=== PATIENT | male | born 1955 | race Caucasian/White ===

== ENCOUNTER 2021-02-21 12:00 | Inpatient (IN) ==
--- NOTE | 2021-02-17 10:11 | Anesthesiology Consultation ---
Date of Service February 17, 2021 Assessment & Plan (1) Encounter for pre-operative examination: Chart Review Chart Review: Acceptable Risk for Surgery (pending anesthesia evaluation DOS ) and Patient NOT seen in Pre Admission Testing -Per patient on 02/17/21- he has stopped his Enestro due to feet numbness- pt instructed to follow up with head of ethics and compliance. - Check BSG AM DOS Per nursing assessment 02/08/21, pt resides in [facility]. Does not wear mask in public but does social distance and washes hands. No known Covid positive contacts or Covid related symptoms. No known Covid infection in the past 90 days. Covid test 02/14/2021 = negative. Did call patient via telephone on 02/17/21 and instruct that until his surgery he should be wearing a mask in public. Will leave to anesthesiologist discretion AM of surgery if additional PPE/surgery time/repeat rapid Covid test needed DOS. Cardiology office visit: 10/11/20= "doing well from a cardiac standpoint. He is s/p post AVR and CABG x 1 in 07/2018.. The patient is stable and at optimal cardiac status presently to proceed with the planned surgery. PCP office visit note 10/26/20= "6.0% Revised Cardiac Risk Index.. pt aware of low risk [sic] of surgery.. optimal for surgery per cardiology." History Surgery Operation Date: 02/21/21 08:40 Proposed Procedures p Left Total Hip Arthroplasty - Tomas Sloan DO Height/Weight Height: 6 ft 2 in Weight: 136.078 kg Allergies Allergy/AdvReac Type Severity Reaction Status Date / Time No Known Allergies Allergy Verified 02/08/21 07:59 Medications Home Medications Medication Instructions Recorded Confirmed Last Taken allopurinol 100 mg PO BID 10/07/20 02/08/21 Unknown atorvastatin 10 mg PO QAM 10/07/20 02/08/21 Unknown carvedilol 6.25 mg PO BID 10/07/20 02/08/21 Unknown metformin 500 mg PO QAM 10/07/20 02/08/21 Unknown oxycodone 5 mg PO BID PRN 10/07/20 02/08/21 Unknown sacubitril-valsartan [Entresto] 1 tab PO BID 10/07/20 02/08/21 Unknown spironolactone 25 mg PO QAM 10/07/20 02/08/21 Unknown acetaminophen [Tylenol Extra 1,000 mg PO Q6H PRN 02/08/21 02/08/21 Unknown Strength] cholecalciferol (vitamin D3) 125 mcg PO QAM 02/08/21 02/08/21 Unknown [Vitamin D3] gabapentin 300 mg PO BID 02/08/21 02/08/21 Unknown lactobacillus combination no.4 3,000 mmu cells PO QAM 02/08/21 02/08/21 Unknown [Probiotic] multivitamin 1 tab PO QAM 02/08/21 02/08/21 Unknown omega-3 fatty acids [Fish Oil 1,000 mg PO QAM 02/08/21 02/08/21 Unknown Concentrate] turmeric root extract 500 mg PO QAM 02/08/21 02/08/21 Unknown Past Medical History Medical History (Updated 02/17/21 @ 10:53 by Bety Clement PA-C) Congestive heart failure Due to left ventricular dysfunction Life vest in 2018 secondary to EF 25% (only wore life vest x 2 months) MRI Cardiac 10/2018- EF 44% Coronary atherosclerosis S/p CABG (1 vessel) with AVR in 2018 Diabetes NIDDM Gout History of valvular heart disease 2018 (AVR) , follows with Dr. Champagne ([place]) Hyperlipidemia Hypertension Obesity Peripheral neuropathy toes (since valve replacement/2017) Second degree AV block Intermittent post op from CABG and AVR - no documented reoccurrence per 09/2020 cardio records Past Surgical History Surgical History History of artificial heart valve Aortic valve (2018) History of broken leg right surgical repair (age 12) History of coronary artery bypass graft x 1 vessel in 2018 with AVR History of tooth extraction Social History Smoking Status: Never smoker Do You Dip or Chew Tobacco: No Hx Alcohol Use: Yes Alcohol type: beer alcohol intake frequency: a few times a week Hx Substance Use: Yes substance use type: prescription drug Testing Laboratory Results 02/14/21= WBC: 7.25 H/H: 14.1/43.1 PLATELETS: 240 SODIUM: 145 POTASSIUM: 4.5 CHLORIDE: 112 CO2: 25.6 BUN: 29.3 CREATININE: 1.25 GLUCOSE: 84 HGB A1C: 5.6 PT: 11.6 PTT: 33.5 INR: 0.99 UA: Negative Electrocardiogram Date: 10/11/20 SR at 71bpm. Low voltage precordial leads. Old anterior infarct. Chest X-Ray Date: 10/13/20 FINDINGS: There are poststernotomy changes. The heart is normal in size. No pleural effusions. No pneumothorax. The lungs are clear. Cardiac valve prosthesis is noted. Mild degenerative changes within the thoracic spine. IMPRESSION: No acute process. Echocardiogram Date: 08/15/18 EF: 25% LV Function: dysfunctional Patient is status post AVR and CABG Global hypokinesis. Low stroke volume. Very technically difficult study, contrast used. Normal LV cavity size and wall thickness. Prosthetic AV is not well seen, no significant gradients across it. Cardiac Catheterization Date: 08/01/18 "LAD 100 (L>L, R>L), LCX 30, RCA 30, EF 25" per cardiology office visit note. Attempts to obtain official report unsuccessful. Other Testing Cardiac MRI 11/08/2018 = LVEF 44%. Normal left ventricular chamber size and wall thickness. Mild to moderate global hypokinesis. Left ventricular septal wall motion consistent with prior cardiothoracic surgery. No late collodium enhancement consistent with prior myocardial infarction. Normally functioning bioprosthetic aortic valve with trace insufficiency.
--- NOTE | 2021-02-17 20:45 | History & Physical Report ---
Date of Service February 21, 2021 Assessment & Plan (1) Degenerative joint disease of left hip: I have indicated the patient for left total hip replacement. The risks, benefits and complications of surgery were explained to the patient which include but not limited to infection, acute blood loss, DVT/PE, injury to nerves, vessels, bone, soft tissue, arthrofibrosis, chronic pain, failure of the prosthesis, hip dislocation, leg length discrepancy, need for additional surgery, cardiac and pulmonary events and . The patient wished to proceed with surgery and informed consent was obtained at this time. We will plan for 81mg ASA BID post-operatively for DVT prophylaxis. Upon discharge the patient will be discharged home with home health services. Appropriate clearances by PCP and cardiology were obtained. History of Present Illness Chief Complaint: Left hip pain/DJD Primary Care Provider: Dion Giron The patient is a 65 year old male who presents with complaints of severe left hip pain and DJD. The patient has failed outpatient conservative treatments to this point which included NSAIDs, IA corticosteroid injection, HEP. The patient's pain and limited function have progressed to the point where they severely hinder their activities of daily living and they no longer tolerate exercise programs. They are requesting to proceed with total hip replacement surgery. Allergies Allergy/AdvReac Type Severity Reaction Status Date / Time No Known Allergies Allergy Verified 02/21/21 12:38 Home Medications Medication Instructions Recorded Confirmed Type allopurinol 100 mg PO BID 10/07/20 02/21/21 History atorvastatin 10 mg PO QAM 10/07/20 02/08/21 History carvedilol 6.25 mg PO BID 10/07/20 02/21/21 History metformin 500 mg PO QAM 10/07/20 02/08/21 History oxycodone 5 mg PO BID PRN 10/07/20 02/21/21 History sacubitril-valsartan [Entresto] 1 tab PO BID 10/07/20 02/08/21 History spironolactone 25 mg PO QAM 10/07/20 02/08/21 History acetaminophen [Tylenol Extra 1,000 mg PO Q6H PRN 02/08/21 02/21/21 History Strength] cholecalciferol (vitamin D3) 125 mcg PO QAM 02/08/21 02/08/21 History [Vitamin D3] gabapentin 300 mg PO BID 02/08/21 02/08/21 History lactobacillus combination no.4 3,000 mmu cells PO QAM 02/08/21 02/08/21 History [Probiotic] multivitamin 1 tab PO QAM 02/08/21 02/08/21 History omega-3 fatty acids [Fish Oil 1,000 mg PO QAM 02/08/21 02/21/21 History Concentrate] turmeric root extract 500 mg PO QAM 02/08/21 02/21/21 History Past Med/Surg History Medical History Congestive heart failure Due to left ventricular dysfunction Life vest in 2018 secondary to EF 25% (only wore life vest x 2 months) MRI Cardiac 10/2018- EF 44% Coronary atherosclerosis S/p CABG (1 vessel) with AVR in 2018 Diabetes NIDDM Gout History of valvular heart disease 2018 (AVR) , follows with Dr. Champagne ([place]) Hyperlipidemia Hypertension Obesity Peripheral neuropathy toes (since valve replacement/2017) Second degree AV block Intermittent post op from CABG and AVR - no documented reoccurrence per 09/2020 cardio records Surgical History History of artificial heart valve Aortic valve (2018) History of broken leg right surgical repair (age 12) History of coronary artery bypass graft x 1 vessel in 2018 with AVR History of tooth extraction Social History Smoking Status: Never smoker Second Hand Exposure: Yes (FATHER SMOKED); Do You Dip or Chew Tobacco: No; Hx Alcohol Use: Yes Alcohol type: beer Hx Substance Use: Yes Preferred Language: Sinhala Communication Ability: Effective Butter Melter Required: No Beliefs That Will Affect Care: None Current Living Situation: Alone Other Information That Helps Us Care for You: No Feels Safe at Home: Yes Safety Concerns: Feels Safe At This Time Assistive Devices: Cane and Glasses Review of Systems Review of Systems: All systems reviewed & are unremarkable except as noted in HPI & below Constitutional: as per Subjective / HPI Physical Exam Physical Exam: LLE NVSI +EHL/FHL/TA/GS SILT grossly, +2 DP pulse, compartments soft NT, limited painful ROM of the hip, antalgic gait. Constitutional: WD/WN, vitals as above Eyes: PERRL, conjunctivae normal, anicteric sclerae ENMT: external ear and nose normal, oropharynx normal Neck: trachea midline, no thyromegaly Respiratory: normal respiratory effort, lungs clear to auscultation Cardiovascular: RRR, no murmur, no edema Gastrointestinal (Abdomen): normal bowel sounds, soft, nontender, no hepatosplenomegaly Musculoskeletal: no cyanosis or clubbing, extremities motor strength 5/5 Skin: no rashes, warm and dry Neurologic: patellar DTR's 2+ bilat, sensation intact Psychiatric: A+Ox3, euthymic affect Lymphatic: no cervical or axillary lymphadenopathy Results & Data Results & Data ([facility]) Diagnostic Findings Multiple views of the hip demonstrates severe DJD with complete loss of the joint space. +osteophytes, +sclerosis, +subchondral cysts.
[~2021-02-21 12:00] MED LIST: ACETAMINOPHEN 500 MG TAB PO SCH; BUPIVACAINE 0.5 % 5 MG/1 ML PF 10ML VIAL ONE; CeleBREX 200 MG CAP PO SCH; FAMOTIDINE 20 MG TAB PO SCH; LR 500ML BOLUS, THEN 15ML/HR IV SCH; METOCLOPRAMIDE HCL 10 MG TABLET PO SCH; ROPIVACAINE 0.5% HCL/PF 150 MG, BUPIVACAINE 0.75% MPF 20 ML, EPINEPHrine 30MG/30ML (OR ... INSTIL SCH; TRANEXAMIC ACID 1,000 MG **IV Intra-op IV SCH; TRANEXAMIC ACID 1,000 MG **IV Pre-op IV SCH; dexAMETHasone 4 MG TAB PO SCH
--- NOTE | 2021-02-21 13:07 | History & Physical Bridge Note ---
Date of Service February 21, 2021 History & Physical Bridge Note I have examined the patient, reviewed the History & Physical and in the interval since the performance of the History & Physical I have noted the following changes of clinical significance: no changes noted
[2021-02-21] MEDS ORDERED: ORTHO JOINT ANESTHETIC ONE (13:13)
[2021-02-21] MEDS ORDERED: LIDOCAINE HCL 2% 2 ML VIAL/AMP(20MG/ML) INFIL ONE (13:46)
[2021-02-21] MEDS ORDERED: PROPOFOL IV EMULSION 10 MG/ML 20 ML VIAL IV ONE ×2 (13:46→16:24)
[2021-02-21] MEDS ORDERED: MIDAZOLAM HCL 1 MG/ML 2ML VIAL ONE ×3 (13:46→16:30)
[2021-02-21] MEDS ORDERED: ONDANSETRON INJ 2 MG/ML 2 ML VIAL IV PRN ×2 (14:10→19:46)
[2021-02-21] MEDS ORDERED: ATROPINE SULFATE 0.1 MG/ML 10ML SYR IV PRN (14:10)
[2021-02-21] MEDS ORDERED: ePHEDrine sulfate 50 MG/ML AMP IV PRN (14:10)
[2021-02-21] MEDS ORDERED: fentaNYL citrate 100 MCG/2 ML VIAL IV PRN (14:10)
[2021-02-21] MEDS ORDERED: ePHEDrine sulfate 50 MG/ML SYR ONE (15:40)
--- NOTE | 2021-02-21 17:04 | Post Operative Brief Note ---
Immediate Post Op Note v1 Date of Surgery February 21, 2021 Pre & Post Diagnosis Operation Date: 02/21/21 14:25 Pre-Op Diagnosis: Unilateral Primary Osteoarthritis, Left Hip Post-Op Diagnosis: Unilateral Primary Osteoarthritis, Left Hip I identified the patient and participated in the time-out.: Yes Procedure Operation Date: 02/21/21 14:25 Actual Procedures p Left Total Hip Arthroplasty Posterior(Left) - Tomas Sloan DO Surgeon Tomas Sloan DO Wiping Cloth Cutter Serg Pino Estimated Blood Loss 185 Findings Consistent with Post-Op Diagnosis Fluids See anesthesia report Specimens Femoral head Anesthesia Type Spinal MAC Complications none Disposition Disposition: Recovery Room Overlapping Procedure I was present for: the critical portions of procedure. I was immediately available: during the entire case. Back up surgeon: was not required during procedure.
--- NOTE | 2021-02-21 17:07 | Operative Report ---
Post Operative Report Pre & Post Diagnosis Operation Date: 02/21/21 14:25 Pre-Op Diagnosis: Unilateral Primary Osteoarthritis, Left Hip Post-Op Diagnosis: Unilateral Primary Osteoarthritis, Left Hip I identified the patient and participated in the time-out.: Yes Procedure Operation Date: 02/21/21 14:25 Actual Procedures p Left Total Hip Arthroplasty Posterior(Left) - Tomas Sloan DO Surgeon Tomas Sloan DO Fibreglass Laminator Serg Pino Estimated Blood Loss 185 Findings Consistent with Post-Op Diagnosis Fluids See anesthesia report Specimens Femoral head Anesthesia Type Spinal MAC Complications none Disposition Disposition: Recovery Room Indications The patient is a 65-year-old male who presents with severe progressive left hip DJD who has failed outpatient conservative treatments. I indicated the patient for a total hip replacement and the risks and benefits were explained in detail which included but not limited to infection, bleeding, blood clot, damage to paul rounding bone, nerves, vessels, soft tissue, hip dislocation, failure of the prosthesis, leg length discrepancy, need for additional surgery and . The patient agreed to proceed with replacement of the hip and informed consent was obtained. Appropriate clearances were obtained. Description of Procedure COMPONENTS USED: Roberto Biomet hip system: Acetabulum size 56, femur size 13.5 extended offset, femoral head 36+0, liner 56x36, acetabular screw 20 mm x 1. Following induction of adequate spinal anesthesia, the patient was transferred to the OR table and placed in lateral decubitus position with right hip down. The left hip was prepped and draped in the typical sterile fashion. A timeout was performed, patient identified and site rodríguez confirmed. Appropriate antibiotics were given. A standard posterolateral/Ya-Langenbeck incision was made. Subcutaneous tissue was sharply dissected. Electrocautery was utilized for hemostasis. The fascia was incised throughout the length of the wound and retracted with the Charnley retractor. The bursa was taken down and the short external rotators were identified. The piriformis was tagged with #1 Vicryl. The short external rotators and capsule were divided from the posterior aspect of the femur using electrocautery. The posterior capsule was tagged with #1 Vicryl. Both external rotators and posterior capsule were swept posterior and protected, along with protecting the sciatic nerve. The hip was dislocated by flexion and internally rotation in a controlled manner and exposure of the femoral neck was gained with an old-style Hohmann and a blunt cobra retractor. A femoral cutting guide was utilized for making the appropriate level femoral neck cut with reciprocating saw. The femoral head was removed, measured and reserved on the back table. Next, attention was turned to the acetabulum. A posterior and anterior offset retractor was placed to gain adequate exposure. Acetabular labrum as well as posterior capsule elements were removed using electrocautery and forceps. Fovea centralis was cleared of all soft tissue. Sequential reaming was performed starting at 48 mm and carried up to a 55 mm and decision was made to proceed with impaction of a 56 mm G7 Osteo-Ti cup. This was impacted and held using a single 20 mm acetabular screw. The trial sakshi tabular liner was placed at this time. Next, attention was turned to the proximal femur where a Bovie and pickup was used to further clear short external rotators from their insertion on the femur. Box osteotome and canal finder was used to gain access to the femoral canal and the lateral reamer on power was used to further open the proximal lateral canal. Sequentially rasping was carried up to a 13.5 which gave good fit and fill of the proximal femur. A trial reduction was carried out with a extended offset femoral neck component a 36+0 mm femoral head. The trial reduction was stable in all degrees of rotation with no [id number]-yven impingement. The hip was dislocated, trial components were removed and access to the acetabulum was re-established. The trial liner was removed and the cup was irrigated to ensure all debris was removed. The final acetabular liner was inserted and properly seated in the cup. Access to the femur was once more gained and the size 13.5 femoral stem with extended offset was impacted into position. The hip was once more assessed with the 36+0 mm femoral head. Stability was accessed and found to be excellent with equal leg lengths. The hip was dislocated for the last time and the final 36+0 ceramic femoral head was impacted in place and the hip was reduced. Range of motion was checked once again and found to be stable. A Betadine soak was performed. After 3 minutes, the hip was once more irrigated with copious sterile saline solution with bacitracin. The sophie-incisional soft tissue was injected utilizing [place] ortho mix which includes a combination of Ropivicaine 0.5% 150mg, Bupivicaine 0.5%/Epinephrine 1:200,000 30ml, Toradol 30mg, Dexamethasone 4mg, Ketamine 10mg, Clonidine 100mcg and NSS 30ml Orthomix solution. The piriformis, external rotators and capsule were repaired to the greater trochanter through bone tunnels using #5 FiberWire. The fascia was closed using #1 Vicryl, subcutaneous tissue was closed using 2-0 Vicryl, and skin was closed with geetha. A sterile dry dressing was applied which included Silverlon. The patient tolerated the procedure well and was transported to PACU in stable condition. Due to the complex nature of the procedure, the entire surgery was performed with the operational assistance of Serg Pino PA-C. The visitor service assistant, under direct supervision, was involved in the actual performance of all aspects of the surgical procedure including patient positioning, hemostasis, tissue retraction, instrument management and wound closure. I attest to the content of the Intraoperative Record and any orders documented therein. Any exceptions are noted below.
--- NOTE | 2021-02-21 17:39 | Orthopedic Progress Note ---
Date of Service February 21, 2021 Assessment & Plan (1) Degenerative joint disease of left hip: Status post left total hip arthroplasty -Ancef x24 DVT prophylaxis: SCDs, teds, 81 mg ASA twice daily Weight-bear as tolerates left lower extremity -Posterior hip precautions PT/OT Postoperative x-ray demonstrates well aligned well fixed prosthesis without fracture or dislocation A.m. labs DC planning Subjective Post Operative Progress Note Patient seen in PACU, comfortable, denies complaints, pain well controlled, no acute issues. Review of Systems Review of Systems: All systems reviewed & are unremarkable except as noted in HPI & below Constitutional: as per Subjective / HPI Physical Exam Physical Exam: Left lower extremity physical exam limited secondary to spinal anesthesia, posterior status post pulse, compartment soft nontender, dressing clean dry and intact. Constitutional: WD/WN, vitals as above Results & Data ([facility]) Vital Signs (Past 12 Hours) Vital Signs Temp Pulse Pulse Resp BP Pulse Ox 02/21/21 17:30 78 18 117/75 99 02/21/21 17:23 36.1 C L 84 16 115/71 97 02/21/21 12:53 36.6 C 63 18 131/76 100
--- NOTE | 2021-02-21 18:03 | XRay Report ---
XR hip 1V LT w pelvis HISTORY: 65 years-old Male IN PACU - A/P PELVIS and LATERAL HIP [total joint arthroplasty COMPARISON: None TECHNIQUE: AP view of the pelvis with crosstable lateral view of the left hip FINDINGS: Left hip total joint arthroplasty. No acute fracture or retained foreign body. Expected postoperative soft tissue swelling with deep tissue air and lateral skin geetha. Arterial calcifications. Pelvic basin calcifications. Severe right hip osteoarthritis. IMPRESSION: 1. Left hip total joint arthroplasty with expected postoperative changes. 2. Severe right hip osteoarthritis. ACT 112: Negative or not required by law. The above report was generated using voice recognition software. It may contain grammatical, syntax o r spelling errors. Electronically signed by: Jd Khanna M.D. 02/21/2021 6:01 PM
[2021-02-21] MEDS ORDERED: MAGNESIUM HYDROXIDE SUSP 30 ML UDC PO PRN (19:46)
[2021-02-21] MEDS ORDERED: HYDROmorphone INJ 0.5 MG/0.5 ML SYR IV PRN (19:46)
[2021-02-21] MEDS ORDERED: NALOXONE HCL 0.4 MG/1 ML VIAL/CARP IV PRN (19:46)
[2021-02-21] MEDS ORDERED: ceFAZolin 2000MG 2,000 MG/15 ML SYR IV SCH (19:46)
[2021-02-21] MEDS ORDERED: diphenhydrAMINE Capsule 25 MG CAP PO PRN (19:46)
[2021-02-21] MEDS ORDERED: METOCLOPRAMIDE HCL INJ 5 MG/ML 2 ML VIAL IV PRN (19:46)
[2021-02-21] MEDS ORDERED: bisacodyL 10 MG SUPP PR PRN (19:46)
[2021-02-21] MEDS ORDERED: oxyCODONE HCL IR 5 MG TAB (IMMEDIATE RELEASE) PO PRN (19:46)
[2021-02-21] MEDS ORDERED: PHARMACY GLYCEMIC MGMT CONSULT PRN (20:28)
[2021-02-21] MEDS ORDERED: SENNA 8.6 MG TAB PO SCH (21:00)
[2021-02-21] MEDS: SODIUM CHLORIDE 0.9% 1000ML 1,000 ML IV SCH (22:41)
[2021-02-21] MEDS: allopurinoL 100 MG TAB PO SCH (22:44)
[2021-02-21] MEDS: carvediloL 6.25 MG TAB PO SCH (22:44)
[2021-02-21] MEDS: DOCUSATE SODIUM 100 MG CAP PO SCH (22:45)
[2021-02-21] MEDS: GABAPENTIN 300 MG CAP PO SCH (22:45)
[2021-02-21] MEDS: SACUBITRIL-VALSARTAN 49/51 MG TAB PO SCH (22:45)
[2021-02-21] MEDS: ACETAMINOPHEN 500 MG TAB PO SCH (22:46)
[2021-02-21] MEDS: ceFAZolin 3,000 MG in DEXTROSE 5% 50 ML IV SCH (22:47)
[2021-02-21] MEDS: INSULIN ASPART 100 UNITS/ML 3 ML PEN SC SCH (23:16)
[2021-02-22] MEDS ORDERED: INSULIN ASPART 100 UNITS/ML 3 ML PEN SC SCH
[2021-02-22] MEDS: KETOROLAC TROMETHAMINE 15 MG/ML VIAL IV SCH ×3 (00:24→12:07)
[2021-02-22] MEDS: SODIUM CHLORIDE 0.9% 1000ML 1,000 ML IV SCH (04:56)
[2021-02-22] MEDS: ACETAMINOPHEN 500 MG TAB PO SCH ×2 (05:20→14:43)
[2021-02-22 07:00] LABS: Hematocrit (blood only) 33.9 % (42-52); Hemoglobin 11.4 g/dL (14.0-18.0); Immature Granulocytes # (auto) 0.02 K/uL (0.00-0.02); Immature Granulocytes % (auto) 0.2 %; Lymphocytes # (auto) 0.93 K/uL (1.2-3.4); Lymphocytes % (auto) 7.9 %; Mean Corpuscular Hemoglobin 30.5 pg (25-34); Mean Corpuscular Hgb Conc 33.6 g/dL (32-36); Mean Corpuscular Volume 90.6 fL (80-100); Mean Platelet Volume 10.1 fL (7.4-10.4); Monocytes # (auto) 0.58 K/uL (0.11-0.59); Neutrophils # (auto) 10.17 K/uL (1.4-6.5); Neutrophils % (auto) 86.9 %; Platelet Count 213 K/uL (130-400); RDW Coefficient of Variation 12.9 % (11.5-14.5); RDW Standard Deviation 42.5 fL (36.4-46.3); Red Blood Count 3.74 M/uL (4.7-6.1)
[2021-02-22 07:31] LABS: BUN Creatinine Ratio 27.3 (10-20); Calcium 8.4 mg/dl (8.5-10.1); Creatinine Clr Calc Pharmacy 80.8 ml/min; Est GFR (African American) 64.2; Est GFR (Non-African American) 55.4; Potassium 4.4 mmol/L (3.5-5.1)
[2021-02-22] MEDS: INSULIN ASPART 100 UNITS/ML 3 ML PEN SC SCH ×2 (09:00→13:03)
[2021-02-22] MEDS ORDERED: SPIRONOLACTONE 25 MG TAB PO SCH (09:00)
[2021-02-22] MEDS ORDERED: ATORVASTATIN 10 MG TAB PO SCH (09:00)
[2021-02-22] MEDS ORDERED: MULTIVITAMIN TAB PO SCH (09:00)
[2021-02-22] MEDS ORDERED: ASPIRIN 81 MG ECTAB PO SCH (09:00)
[2021-02-22] MEDS: allopurinoL 100 MG TAB PO SCH (09:02)
[2021-02-22] MEDS: carvediloL 6.25 MG TAB PO SCH (09:12)
[2021-02-22] MEDS: DOCUSATE SODIUM 100 MG CAP PO SCH (09:12)
[2021-02-22] MEDS: GABAPENTIN 300 MG CAP PO SCH (09:13)
[2021-02-22] MEDS: SACUBITRIL-VALSARTAN 49/51 MG TAB PO SCH (09:13)
[2021-02-22] MEDS: ceFAZolin 3,000 MG in DEXTROSE 5% 50 ML IV SCH (10:22)
--- NOTE | 2021-02-22 13:28 | Orthopedic Progress Note ---
Date of Service February 22, 2021 Assessment & Plan (1) Degenerative joint disease of left hip: Status post left total hip arthroplasty POD#1 -Ancef x24 DVT prophylaxis: SCDs, teds, 81 mg ASA twice daily Weight-bear as tolerates left lower extremity -Posterior hip precautions PT/OT Postoperative x-ray demonstrates well aligned well fixed prosthesis without fracture or dislocation A.m. labs - as above, hgb 11.4 DC planning - home with Admission and Anticipated Discharge Date Admission Date: February 21, 2021 Subjective Post Operative Progress Note Patient seen sitting in chair at bedside, comfortable, denies complaints, pain well controlled, no acute issues. Denies F/C/N/V/SOB/CP. Review of Systems Constitutional: as per Subjective / HPI Physical Exam Physical Exam: LLE NVSI +EHL/FHL/TA/GS SILT grossly, +2 DP pulse, compartments soft NT, dressing cdi. Scant drainage on dressing. Results & Data ([facility]) Vital Signs (Past 12 Hours) Vital Signs Temp Pulse Resp BP Pulse Ox 02/22/21 11:15 36.7 C 76 16 104/65 98 02/22/21 07:35 36.7 C 71 16 100/64 97 02/22/21 03:22 36.6 C 80 18 105/68 98 Laboratory Results 02/22/21 02/22/21 02/22/21 Range/Units 11:53 08:19 06:46 WBC (4.8-10.8) K/uL RBC (4.7-6.1) M/uL Hgb (14.0-18.0) g/dL Hct (42-52) % MCV (80-100) fL MCH (25-34) pg MCHC (32-36) g/dL RDW Std Deviation (36.4-46.3) fL RDW Coeff of Audie (11.5-14.5) % Plt Count (130-400) K/uL MPV (7.4-10.4) fL Immature Gran % (Auto) % Neut % (Auto) % Lymph % (Auto) % Roane % (Auto) % Eos % (Auto) % Baso % (Auto) % Neut # (Auto) (1.4-6.5) K/uL Lymph # (Auto) (1.2-3.4) K/uL Roane # (Auto) (0.11-0.59) K/uL Eos # (Auto) (0-0.5) K/uL Baso # (Auto) (0-0.2) K/uL Immature Gran # (Auto) (0.00-0.02) K/uL Sodium 141 (136-145) mmol/L Potassium 4.4 (3.5-5.1) mmol/L Chloride 112 H (98-107) mmol/L Carbon Dioxide 24 (21-32) mmol/L Anion Gap 5.0 (3-11) BUN 36 H (7-18) mg/dl Creatinine 1.32 (0.6-1.4) mg/dl Est Cr Clr Drug Dosing 80.8 ml/min Est GFR ( Amer) 64.2 Est GFR (Non-Af Amer) 55.4 BUN/Creatinine Ratio 27.3 H (10-20) Glucose 156 H (70-99) mg/dl POC Glucose 152 H 156 H (70-99) mg/dl Calcium 8.4 L (8.5-10.1) mg/dl Blood Type Antibody Screen 02/22/21 02/22/21 02/21/21 Range/Units 06:46 00:19 20:34 WBC 11.70 H (4.8-10.8) K/uL RBC 3.74 L (4.7-6.1) M/uL Hgb 11.4 L (14.0-18.0) g/dL Hct 33.9 L (42-52) % MCV 90.6 (80-100) fL MCH 30.5 (25-34) pg MCHC 33.6 (32-36) g/dL RDW Std Deviation 42.5 (36.4-46.3) fL RDW Coeff of Audie 12.9 (11.5-14.5) % Plt Count 213 (130-400) K/uL MPV 10.1 (7.4-10.4) fL Immature Gran % (Auto) 0.2 % Neut % (Auto) 86.9 % Lymph % (Auto) 7.9 % Roane % (Auto) 5.0 % Eos % (Auto) 0.0 % Baso % (Auto) 0.0 % Neut # (Auto) 10.17 H (1.4-6.5) K/uL Lymph # (Auto) 0.93 L (1.2-3.4) K/uL Roane # (Auto) 0.58 (0.11-0.59) K/uL Eos # (Auto) 0.00 (0-0.5) K/uL Baso # (Auto) 0.00 (0-0.2) K/uL Immature Gran # (Auto) 0.02 (0.00-0.02) K/uL Sodium (136-145) mmol/L Potassium (3.5-5.1) mmol/L Chloride (98-107) mmol/L Carbon Dioxide (21-32) mmol/L Anion Gap (3-11) BUN (7-18) mg/dl Creatinine (0.6-1.4) mg/dl Est Cr Clr Drug Dosing ml/min Est GFR ( Amer) Est GFR (Non-Af Amer) BUN/Creatinine Ratio (10-20) Glucose (70-99) mg/dl POC Glucose 215 H 147 H (70-99) mg/dl Calcium (8.5-10.1) mg/dl Blood Type Antibody Screen 02/21/21 02/21/21 Range/Units 17:24 12:57 WBC (4.8-10.8) K/uL RBC (4.7-6.1) M/uL Hgb (14.0-18.0) g/dL Hct (42-52) % MCV (80-100) fL MCH (25-34) pg MCHC (32-36) g/dL RDW Std Deviation (36.4-46.3) fL RDW Coeff of Audie (11.5-14.5) % Plt Count (130-400) K/uL MPV (7.4-10.4) fL Immature Gran % (Auto) % Neut % (Auto) % Lymph % (Auto) % Roane % (Auto) % Eos % (Auto) % Baso % (Auto) % Neut # (Auto) (1.4-6.5) K/uL Lymph # (Auto) (1.2-3.4) K/uL Roane # (Auto) (0.11-0.59) K/uL Eos # (Auto) (0-0.5) K/uL Baso # (Auto) (0-0.2) K/uL Immature Gran # (Auto) (0.00-0.02) K/uL Sodium (136-145) mmol/L Potassium (3.5-5.1) mmol/L Chloride (98-107) mmol/L Carbon Dioxide (21-32) mmol/L Anion Gap (3-11) BUN (7-18) mg/dl Creatinine (0.6-1.4) mg/dl Est Cr Clr Drug Dosing ml/min Est GFR ( Amer) Est GFR (Non-Af Amer) BUN/Creatinine Ratio (10-20) Glucose (70-99) mg/dl POC Glucose 121 H (70-99) mg/dl Calcium (8.5-10.1) mg/dl Blood Type A Negative Antibody Screen NEGATIVE
--- NOTE | 2021-02-22 14:08 | Pharmacy Report ---
Pharmacy Glycemic Short Note 2 - Date of Service February 22, 2021 - Glycemic Short BSG Results (Last 24 hours): 02/21/21 02/21/21 02/22/21 17:24 20:34 00:19 Glucose POC Glucose 121 H 147 H 215 H 02/22/21 02/22/21 02/22/21 06:46 08:19 11:53 Glucose 156 H POC Glucose 156 H 152 H OUTPATIENT ANTIDIABETIC REGIMEN: * Metformin 500 mg QAM * A1c 6.1% 10/13/20 ASSESSMENT: * Mr. LEWIS admitted following left total hip arthroplasty * BSGs have been decently controlled- 156-152 mg/dL today * Will continue current novolog parameters, no basal ordered; can restart metformin tomorrow AM if patient still admitted PLAN FOR INPATIENT GLYCEMIC CONTROL: * Hold outpatient oral diabetes medications * Basal insulin * held * Bolus insulin * NovoLog per scale ACHS or Q6hrs while NPO * Goal Range: Low 110 mg/dL - High 140 mg/dL * Correction Factor: 20 mg/dL/unit * Nutritional / Prandial insulin per carb ratio of 1 unit per 7 grams CHO consumed PLAN FOR DISCHARGE: * Patient's A1c at goal <7%, however > 3 months ago, would recommend restarting home regimen on discharge and f/u with outpatient provider for more current a1c.
--- NOTE | 2021-02-22 23:23 | Discharge Summary ---
Date of Service February 22, 2021 Admission HPI Per Admitting Provider The patient is a 65 year old male who presents with complaints of severe left hip pain and DJD. The patient has failed outpatient conservative treatments to this point which included NSAIDs, IA corticosteroid injection, HEP. The patient's pain and limited function have progressed to the point where they severely hinder their activities of daily living and they no longer tolerate exercise programs. They are requesting to proceed with total hip replacement surgery. Principal Diagnosis Left total hip replacement Discharge Exam LLE NVSI +EHL/FHL/TA/GS SILT grossly, +2 DP pulse, compartments soft NT, dressing cdi. Constitutional WD/WN, vitals as above Discharge Data Allergies Allergy/AdvReac Type Severity Reaction Status Date / Time No Known Allergies Allergy Verified 02/21/21 12:38 Procedures Performed Operation Date: 02/21/21 14:25 Actual Procedures p Left Total Hip Arthroplasty Posterior(Left) - Tomas Sloan DO Hospital Course (1) Degenerative joint disease of left hip: The patient is a 65 -year-old male who presents with long standing history of severe left hip DJD and failed outpatient conservative treatments. The patient's symptoms have progressed to the point where it has been difficult to perform even normal activities of daily living. I indicated the patient for a left total hip arthroplasty, the risks, benefits and complications of the procedure include but not limited to infection, bleeding, damage to bone, nerves, vessels, surrounding soft tissue, may develop blood clots, loss of function, leg length discrepancy, dislocation, failure of the components, loosening of the components, the need for additional surgery and . The patient wished to proceed with surgery at this time and informed consent was obtained. Hospital Course: On 02/21/21 the patient was taken to the operating room, adequate anesthesia administered and underwent a left total hip arthroplasty. The patient tolerated the procedure well and was taken to the PACU in stable condition. Post- operatively the patient was started on a DVT ppx medication and given appropriate IV antibiotics. Consults were placed to physical therapy, occupational therapy and case management. On POD#1, the patient did well overnight and their pain was well controlled. Labs were drawn and the Hgb was 11.4. The patient progressed well with PT. Dressings were changed at this time and the incision was clean, dry and intact. The patients hospital stay was relatively uneventful and they were deemed stable by the orthopedic team and consultants to be discharged home with HH on 02/22/21. Discharge Instructions: Upon discharge the patient may weight bear as tolerates through their operative extremity. They were instructed to keep the incision clean and dry at all times. The patient may shower but should not submerge the incision, avoid bathing, pools and hot tubs. The patient was given a script for pain medication and should take as instructed. The patient was given a script for DVT ppx 81mg ASA BID and should take as directed. The patient was instructed to not drive or travel for long distances until cleared to do so. If the patient develops any symptoms of fevers, chills, nausea, vomiting, increased redness, swelling, pain or drainage from the surgical site, they should notify the office and/or proceed to the nearest emergency room. The patient should follow up in 10-14 days after surgery for their routine post-operative follow-up appointment and should call the office, to confirm the date and time. Status post left total hip arthroplasty POD#1 -Ancef x24 DVT prophylaxis: SCDs, teds, 81 mg ASA twice daily Weight-bear as tolerates left lower extremity -Posterior hip precautions PT/OT Postoperative x-ray demonstrates well aligned well fixed prosthesis without fracture or dislocation A.m. labs - as above, hgb 11.4 DC planning - home with Total Time Total Time Spent Total Time Spent (In Minutes): 30 Discharge Plan Discharge Items Patient Disposition: Home - Home Health Services Reason For Visit: Unilateral Primary Osteoarthritis, Left Hip Discharge Diagnosis: Left total hip replacement Condition on Discharge: Good Activity: Per Instructions section Lifting: Wait until after follow-up appointment Bathing: Keep incision dry Bathing Comment: No bathing, pools or hot tubs. Sexual Activity: Wait until after follow-up appointment Exercise/Sports: Wait until after follow-up appointment Driving/Machine Use: No driving. Weightbearing: Full weightbearing Non-emergency contact: Primary Care Provider and Surgeon Call non-emergency contact if: you have any medication questions, your symptoms worsen, your pain is not controlled, your pain is worsening, your pain is unusual for you, your pain is concerning for you, you have a fever, your temperature is above 101, your wound has increased redness, your wound has increased drainage and your wound pain has increased Follow-up/Referrals: Dion Giron [Primary Care Provider] - Diet: Carb Consistent or DM2 Addtl Attending Provider Instructions: ACTIVITY RECOMMENDATIONS: SELF CARE INSTRUCTIONS AFTER TOTAL HIP REPLACEMENT Until the incision and soft tissues around your hip have healed, there is a possibility that the hip prosthesis could dislocate. A. Observe the following precautions to prevent dislocation: 1. Don't bend your hip greater than 90 degrees. 2. Avoid crossing your legs or ankles while standing or lying. 3. Sit with your feet placed 6 inches apart. 4. When sitting, keep your knees below your hips. Sit on a firm surface, avoid deep, soft chairs and couches. Use an elevated toilet seat in the bathroom. 5. Don't bend over at the waist. Use a long handled shoehorn and a sock aid to help you put on your shoes and socks. A mannequin refinisher can help you picking tech objects that are too high or too low to reach. 6. Keep car riding to a minimum for at least one month after surgery. B. Your balance may be shaky for a while. Use crutches or a walker until directed by your doctor. C. Use hand rails when walking on stairs. D. Wear low heeled shoes with non-slip soles. E. Be sure that your floors are free of things that could trip you - throw rugs, electrical cords, small objects. Avoid wet and waxed floors, especially with crutches and canes. F. Try to walk several times a day with rest periods between. G. Continue with all the exercises taught to you in the hospital. Again, make walking a part of your daily routine. SPECIAL CARE INSTRUCTIONS: VERY IMPORTANT TO READ AND REVIEW A. You may still be at risk for phlebitis and blood clots. 1. Wear surgical stockings (GISELLE hose) for 2 weeks after surgery to improve circulation and reduce swelling. 2. Take Aspirin 81mg twice daily for 4 weeks or as directed by your doctor. This is your blood thinner. 3. High risk patients may be prescribed a stronger blood thinner if necessary. 4. If you are on Coumadin normally, your family doctor/computer hardware engineer should monitor your blood work. Expect a phone call the day of or the day after bloodwork is drawn to adjust your dosage. B. You must take antibiotics before having dental work, bladder, bowel and other surgery. Your doctor will provide you with a permanent card to carry describing precautions. C. Call [facility] if you have a fever, redness or swelling around the incision, cloudy drainage from incision, or sudden increase in pain in your hip, not relieved by your regular pain medication. D. Please call the office at if you have any concerns or questions about your operation or recovery. * YOU MAY SHOWER, NO TUB BATHS UNTIL CLEARED BY YOUR DOCTOR. * WEAR GISELLE HOSE 20 HOURS PER DAY FOR 2 WEEKS. * YOU SHOULD USE A WALKER OR CRUTCHES FOR 2-4 WEEKS. THIS WILL HELP PREVENT STRAIN ON YOUR HIP MUSCLE AND ALLOW IT TO HEAL PROPERLY. YOU MAY WEAN TO A CANE TOLERATED. * MOST PATIENTS WILL HAVE HOME NURSING FOR THERAPY. IF YOU DECIDE TO DO OUTPATIENT PHYSICAL THERAPY, PLEASE SCHEDULE THIS 3 TIMES PER WEEK. * YOU MAY HAVE A LARGE, BAND-CAYDEN LIKE DRESSING (SILVERON). THIS WILL REMAIN ON YOUR INCISION FOR 7 DAYS, THEN CAN BE REMOVED. IF INCISION IS LEAKING THROUG H DRESSING, PLEASE CALL THE OFFICE . FOLLOW UP VISIT: If appointment is not already scheduled: Please call [facility] to make a follow-up appointment for 2 weeks after your surgery at . Pending Studies at Discharge: No Stand-Alone Forms: My [facility], Opioid Pain Management, Smoking Cessation Medications and DC Order Prescriptions: New celecoxib [Celebrex] 200 mg Capsule 200 mg PO BID PRN (Reason: pain/inflammation) Qty: 28 RF: 0 aspirin 81 mg Tablet,Delayed Release (Dr/Ec) 81 mg PO BID Qty: 56 RF: 0 acetaminophen 500 mg Tablet 1,000 mg PO Q8 PRN (Reason: Pain/fevers) Qty: 90 RF: 0 oxycodone 5 mg Tablet 5 mg PO Q6H MDD 4 PRN (Reason: pain) Qty: 30 RF: 0 sennosides [Senokot] 8.6 mg Tablet 17.2 mg PO HS PRN (Reason: constipation) Qty: 28 RF: 0 Continued metformin 500 mg Tablet 500 mg PO QAM RF: 0 carvedilol 6.25 mg Tablet 6.25 mg PO BID RF: 0 atorvastatin 10 mg Tablet 10 mg PO QAM RF: 0 allopurinol 100 mg Tablet 100 mg PO BID RF: 0 spironolactone 25 mg Tablet 25 mg PO QAM RF: 0 Entresto 49-51 mg Tablet 1 tab PO BID RF: 0 gabapentin 300 mg Capsule 300 mg PO BID RF: 0 multivitamin Tablet 1 tab PO QAM RF: 0 cholecalciferol (vitamin D3) [Vitamin D3] 125 mcg (5,000 unit) Tablet 125 mcg PO QAM RF: 0 turmeric root extract 500 mg Capsule 500 mg PO QAM RF: 0 Probiotic 3 billion cell Capsule 3,000 mmu cells PO QAM RF: 0 omega-3 fatty acids [Fish Oil Concentrate] 1,000 mg Capsule 1,000 mg PO QAM RF: 0 Discontinued oxycodone 5 mg Tablet 5 mg PO BID PRN (Reason: Pain) RF: 0 acetaminophen [Tylenol Extra Strength] 500 mg Capsule 1,000 mg PO Q6H PRN (Reason: Pain) RF: 0 Discharge Orders: Discharge Order (Routine); Ordered 02/22/21 Ordered By: Tomas Sloan Admission Data Admit Date/Time: 02/21/21 17:24 Attending Provider: Tomas Sloan Admit Provider: Tomas Sloan Primary Care Provider: Dion Giron Other Interventions: Discharge Summary Assessment (RN) Last Done: 02/22/21 14:45
[2021-02-23] MEDS ORDERED: CeleBREX 200 MG CAP PO SCH (09:00)
== END 2021-02-22 15:20 | disposition home health service (06) | DRG 470 ==
LOC: 3E 12:00 → ASU 12:00 → OBSVTOIN 17:24